=== PATIENT | male | born 1950 | race African-American/Black ===

== ENCOUNTER 2021-06-21 17:10 | Emergency (ER) | payer MEDICARE, MEDICAID | END 2021-06-21 17:57 | disposition left against medical advice (07) | LOC: CSHERS 17:10 | DX: Z53.21 Procedure and treatment not carried out due to patient leaving prior to being seen by health care provider (principal) ==

== ENCOUNTER 2021-06-21 22:16 | Emergency (ER) | payer MEDICARE, MEDICAID ==
[2021-06-21 23:27] LABS: #Basophils 0.1 10x3/uL (0.0-0.2); #Eosinphils 0.3 10x3/uL (0.0-0.5); #Monocytes 0.9 10x3/uL (0.0-1.1); #Neutrophils 3.3 10x3/uL (1.5-8.4); %Eosinophils 4.3 % (0.0-6.0); %Lymphocytes 22.7 % (18.0-47.0); %Monocytes 14.9 % (0.0-10.0); %Neutrophils 56.9 % (40.0-75.0); Hemoglobin 8.8 g/dL (13.5-17.5); Mean Corpuscular Volume 81.9 fl (81.2-95.1); Mean Platelet Volume 10.6 fl (7.4-10.4); Platelet Count 234 10x3/uL (150-450); RBC Distribution Width 14.3 % (11.5-14.5); Red Blood Cell (RBC) Count 3.26 10x6/uL (4.32-5.72); White Blood Cell (WBC) Count 5.8 10x3/uL (3.5-10.5)
[2021-06-21 23:44] LABS: ALT (SGPT) 17 U/L (8-55); AST (SGOT) 23 U/L (5-34); Albumin 3.8 g/dL (3.4-4.8); Alkaline Phosphatase 74 U/L (40-110); Anion Gap 13 mmol/L (10-20); BUN (Urea Nitrogen) 20 mg/dL (8.4-25.7); Bilirubin, Total 0.3 mg/dL (0.2-1.2); CK (CPK) 204 U/L (30-200); Calc. Creatinine Clearance 0 mL/min (70-130); Calcium 8.9 mg/dL (7.8-10.44); Carbon Dioxide 25 mmol/L (23-31); Chloride 106 mmol/L (98-107); Globulin 3.7 g/dL (2.4-3.5); Glucose 113 mg/dL (80-115); Potassium 4.1 mmol/L (3.5-5.1); Protein, Total 7.5 g/dL (5.8-8.1); Sodium 140 mmol/L (136-145)
== END 2021-06-22 00:36 | disposition home or self-care (01) ==
LOC: CSHERS 22:16
DX: R07.89 Other chest pain (principal); I25.10 Atherosclerotic heart disease of native coronary artery without angina pectoris; I10 Essential (primary) hypertension; I25.2 Old myocardial infarction; F17.210 Nicotine dependence, cigarettes, uncomplicated; Z79.899 Other long term (current) drug therapy
CPT/HCPCS: 71045; 82550; 83880; 93005

== ENCOUNTER 2021-06-23 17:59 | Emergency (ER) | payer MEDICARE, MEDICAID ==
[2021-06-23] MEDS ORDERED: Bacitracin 1 PK ONE (19:03)
== END 2021-06-23 19:44 | disposition home or self-care (01) ==
LOC: CSHERS 17:59
DX: S80.812A Abrasion, left lower leg, initial encounter (principal); I10 Essential (primary) hypertension; I25.10 Atherosclerotic heart disease of native coronary artery without angina pectoris; I25.2 Old myocardial infarction; X58.XXXA Exposure to other specified factors, initial encounter; Z87.891 Personal history of nicotine dependence
CPT/HCPCS: 99283

== ENCOUNTER 2021-06-28 15:37 | Outpatient (CLI) | payer MEDICARE, MEDICAID ==
[2021-06-29 01:56] LABS: SARS-CoV-2 PCR by NAA Not Detected (NotDetected)
== END 2021-06-28 15:38 | disposition home or self-care (01) ==
LOC: CSHLAB 15:37
PROVIDERS: ATTEND Internal Medicine Gastroenterology
DX: Z01.812 Encounter for preprocedural laboratory examination (principal); Z20.822 Contact with and (suspected) exposure to COVID-19; K63.5 Polyp of colon
CPT/HCPCS: U0003; U0005

== ENCOUNTER 2021-06-29 10:13 | Day surgery (SDC) | payer MEDICARE, MEDICAID ==
[2021-06-28 14:39] VITALS: BMI 28.7
[2021-06-29] MEDS ORDERED: Lidocaine 1% MPF 2 ML VIAL ONE (11:30)
[2021-06-29] MEDS ORDERED: PROPOFOL 20 ML ONE (12:01)
== END 2021-06-29 13:20 | disposition home or self-care (01) ==
LOC: CSHSDC 10:13
PROVIDERS: ATTEND Internal Medicine Gastroenterology
PROC: 0DJD8ZZ Inspection of Lower Intestinal Tract, Via Natural or Artificial Opening Endoscopic (ICD-10-PCS; principal; 2021-06-29)
DX: Z12.11 Encounter for screening for malignant neoplasm of colon (principal); Z80.0 Family history of malignant neoplasm of digestive organs; Z86.010 Personal history of colon polyps; I25.10 Atherosclerotic heart disease of native coronary artery without angina pectoris; I10 Essential (primary) hypertension; E78.5 Hyperlipidemia, unspecified; G47.30 Sleep apnea, unspecified; F17.210 Nicotine dependence, cigarettes, uncomplicated
CPT/HCPCS: J2704

== ENCOUNTER 2021-07-01 20:11 | Emergency (ER) | payer MEDICARE, MEDICAID | END 2021-07-01 21:36 | disposition left against medical advice (07) | LOC: CSHERS 20:11 | DX: Z53.21 Procedure and treatment not carried out due to patient leaving prior to being seen by health care provider (principal) ==

== ENCOUNTER 2021-07-17 19:35 | Emergency (ER) | payer MEDICARE, MEDICAID ==
[2021-07-17 20:21] LABS: ALT (SGPT) 19 U/L (8-55); AST (SGOT) 25 U/L (5-34); Alkaline Phosphatase 66 U/L (40-110); Anion Gap 13 mmol/L (10-20); BUN (Urea Nitrogen) 28 mg/dL (8.4-25.7); Bilirubin, Total 0.2 mg/dL (0.2-1.2); Calc. Creatinine Clearance 0 mL/min (70-130); Calcium 9.2 mg/dL (7.8-10.44); Carbon Dioxide 26 mmol/L (23-31); Chloride 104 mmol/L (98-107); Globulin 3.8 g/dL (2.4-3.5); Glucose 91 mg/dL (80-115); Potassium 4.3 mmol/L (3.5-5.1); Protein, Total 7.8 g/dL (5.8-8.1); Sodium 139 mmol/L (136-145)
[2021-07-17 20:22] LABS: Hemoglobin 8.7 g/dL (13.5-17.5); Mean Corpuscular HGB CONC 31.9 g/dL (32.0-36.0); Mean Corpuscular Hemoglobin 26.4 pg (27.0-33.0); Mean Corpuscular Volume 82.7 fl (81.2-95.1); Mean Platelet Volume 11.3 fl (7.4-10.4); Platelet Count 226 10x3/uL (150-450); RBC Distribution Width 14.8 % (11.5-14.5); White Blood Cell (WBC) Count 6.9 10x3/uL (3.5-10.5)
[2021-07-17 20:26] LABS: MDiff Complete? YES
[2021-07-17 20:33] LABS: Band 1 % (5-11); Eosinophils 5 % (0-10); Lymphocytes 36 % (21-51); Monocytes 15 % (0-10); Neutrophil 40 % (42-75); Reactive Lymphocytes 2 % (0-10)
[2021-07-17 20:37] LABS: Microcytosis SLIGHT = 6-15 cells (100X) (0-5/hpf); Platelet Morphology Comment Appears Adequate
== END 2021-07-17 20:48 | disposition home or self-care (01) ==
LOC: CSHERS 19:35
DX: R53.83 Other fatigue (principal); D64.9 Anemia, unspecified; R53.1 Weakness; I10 Essential (primary) hypertension; I25.2 Old myocardial infarction; F17.210 Nicotine dependence, cigarettes, uncomplicated
CPT/HCPCS: 71045; 80053; 83880; 84484; 85025; 93005

== ENCOUNTER 2021-08-03 09:51 | Outpatient (CLI) | payer MEDICARE, MEDICAID ==
[2021-08-03 22:08] LABS: SARS-CoV-2 PCR by NAA Not Detected (NotDetected)
== END 2021-08-03 09:52 | disposition home or self-care (01) ==
LOC: CSHLAB 09:51
PROVIDERS: ATTEND Internal Medicine
DX: Z20.822 Contact with and (suspected) exposure to COVID-19 (principal); K63.5 Polyp of colon
CPT/HCPCS: U0003; U0005

== ENCOUNTER → 2021-08-07 | Day surgery (SDC) | payer MEDICARE, MEDICAID ==
[2021-08-03 14:14] VITALS: BMI 27.8
[~2021-08-07] MED LIST: Lidocaine 1% MPF 2 ML VIAL ONE; Lidocaine 2% MPF 10 ML AMP (For Epidural Use) ONE; PROPOFOL 20 ML ONE; PROPOFOL 40 ML ONE
== END ==
LOC: CSHSDC 10:11
PROVIDERS: ATTEND Internal Medicine Gastroenterology
PROC: 0DB98ZX Excision of Duodenum, Via Natural or Artificial Opening Endoscopic, Diagnostic (ICD-10-PCS; principal; 2021-08-07)
PROC: 0DBK8ZX Excision of Ascending Colon, Via Natural or Artificial Opening Endoscopic, Diagnostic (ICD-10-PCS; 2021-08-07)
PROC: 0DBL8ZX Excision of Transverse Colon, Via Natural or Artificial Opening Endoscopic, Diagnostic (ICD-10-PCS; 2021-08-07)
PROC: 0DBH8ZX Excision of Cecum, Via Natural or Artificial Opening Endoscopic, Diagnostic (ICD-10-PCS; 2021-08-07)
DX: K44.9 Diaphragmatic hernia without obstruction or gangrene (principal); D12.2 Benign neoplasm of ascending colon; D12.3 Benign neoplasm of transverse colon; D64.9 Anemia, unspecified; I25.10 Atherosclerotic heart disease of native coronary artery without angina pectoris; Z95.5 Presence of coronary angioplasty implant and graft; E78.5 Hyperlipidemia, unspecified; I10 Essential (primary) hypertension; K21.9 Gastro-esophageal reflux disease without esophagitis; B19.20 Unspecified viral hepatitis C without hepatic coma; G47.30 Sleep apnea, unspecified; Z80.0 Family history of malignant neoplasm of digestive organs; F17.200 Nicotine dependence, unspecified, uncomplicated
CPT/HCPCS: 88305; J2704

== ENCOUNTER 2022-03-26 18:04 | Emergency (ER) | payer OTHER, MEDICAID ==
[2022-03-26 18:46] LABS: #Basophils 0.1 10x3/uL (0.0-0.2); #Eosinphils 0.2 10x3/uL (0.0-0.5); #Neutrophils 4.1 10x3/uL (1.5-8.4); %Basophils 0.9 % (0.0-2.0); %Eosinophils 2.3 % (0.0-6.0); %Lymphocytes 23.3 % (18.0-47.0); %Monocytes 14.6 % (0.0-10.0); %Neutrophils 58.6 % (40.0-75.0); Hemoglobin 9.9 g/dL (13.5-17.5); Mean Corpuscular HGB CONC 33.4 g/dL (32.0-36.0); Mean Corpuscular Hemoglobin 26.6 pg (27.0-33.0); Mean Corpuscular Volume 79.6 fl (81.2-95.1); Mean Platelet Volume 9.8 fl (7.4-10.4); Platelet Count 281 10x3/uL (150-450); RBC Distribution Width 15.3 % (11.5-14.5); Red Blood Cell (RBC) Count 3.72 10x6/uL (4.32-5.72)
[2022-03-26 19:05] LABS: ALT (SGPT) 16 U/L (8-55); AST (SGOT) 19 U/L (5-34); Albumin 3.9 g/dL (3.4-4.8); Alkaline Phosphatase 70 U/L (40-110); Anion Gap 15 mmol/L (10-20); BUN (Urea Nitrogen) 18 mg/dL (8.4-25.7); Bilirubin, Total 0.4 mg/dL (0.2-1.2); CK (CPK) 124 U/L (30-200); Calc. Creatinine Clearance 0 mL/min (70-130); Calcium 9.5 mg/dL (7.8-10.44); Carbon Dioxide 24 mmol/L (23-31); Chloride 103 mmol/L (98-107); Estimated GFR 69; Glucose 96 mg/dL (80-115); Potassium 4.3 mmol/L (3.5-5.1); Protein, Total 7.9 g/dL (5.8-8.1); Sodium 138 mmol/L (136-145)
[2022-03-26] MEDS ORDERED: Ondansetron ODT 4 MG TAB ONE (19:51)
[2022-03-26] MEDS ORDERED: Ondansetron PF 4 MG/2 ML Vial ONE (22:27)
== END 2022-03-26 23:58 | disposition home or self-care (01) ==
LOC: CSHERS 18:04
DX: D64.9 Anemia, unspecified (principal); I10 Essential (primary) hypertension; I25.2 Old myocardial infarction; F17.210 Nicotine dependence, cigarettes, uncomplicated; Z79.899 Other long term (current) drug therapy
CPT/HCPCS: 36415; 71045; 74176; 80053; 82550; 83605; 83690; 83880; 84484; 85025; 93005; 96374; J2405; Q0162

== ENCOUNTER 2022-07-09 16:43 | Outpatient (CLI) | payer MEDICARE, OTHER | END 2022-07-09 16:44 | disposition home or self-care (01) | LOC: CSHRAD 16:43 | PROVIDERS: ATTEND Internal Medicine | DX: M54.50 Low back pain, unspecified (principal); M41.9 Scoliosis, unspecified; M47.814 Spondylosis without myelopathy or radiculopathy, thoracic region; M47.816 Spondylosis without myelopathy or radiculopathy, lumbar region | CPT/HCPCS: 72072; 72100 ==

== ENCOUNTER 2022-11-27 12:19 | Emergency (ER) | payer OTHER, MEDICAID ==
[2022-11-27] MEDS ORDERED: Ondansetron PF 4 MG/2 ML Vial ONE (13:50)
[2022-11-27 14:21] LABS: #Monocytes 0.3 10x3/uL (0.0-1.1); #Neutrophils 4.9 10x3/uL (1.5-8.4); %Basophils 0.7 % (0.0-2.0); %Eosinophils 0.2 % (0.0-6.0); %Monocytes 4.9 % (0.0-10.0); Hemoglobin 12.3 g/dL (13.5-17.5); Mean Corpuscular Hemoglobin 27.6 pg (27.0-33.0); Mean Corpuscular Volume 83.6 fl (81.2-95.1); Mean Platelet Volume 10.6 fl (7.4-10.4); Platelet Count 282 10x3/uL (150-450); RBC Distribution Width 15.3 % (11.5-14.5); Red Blood Cell (RBC) Count 4.46 10x6/uL (4.32-5.72); White Blood Cell (WBC) Count 6.1 10x3/uL (3.5-10.5)
[2022-11-27 14:42] LABS: ALT (SGPT) 15 U/L (8-55); AST (SGOT) 27 U/L (5-34); Acetaminophen Less than 10.0 mcg/mL (10.0-30.0); Albumin 4.1 g/dL (3.4-4.8); Alcohol Less than 10 mg/dL (Less than 10); Alkaline Phosphatase 74 U/L (40-110); Anion Gap 16 mmol/L (10-20); BUN (Urea Nitrogen) 18 mg/dL (8.4-25.7); Bilirubin, Total 0.3 mg/dL (0.2-1.2); Calc. Creatinine Clearance 0 mL/min (70-130); Carbon Dioxide 25 mmol/L (23-31); Chloride 101 mmol/L (98-107); Estimated GFR 71; Globulin 4.6 g/dL (2.4-3.5); Glucose 132 mg/dL (80-115); Potassium 4.6 mmol/L (3.5-5.1); Protein, Total 8.7 g/dL (5.8-8.1); Salicylate Less than 8.0 mg/dL (15.0-30.0); Sodium 137 mmol/L (136-145)
[2022-11-27 15:27] LABS: Amphetamine Not Detected (NotDetected); Barbiturates Screen Not Detected (NotDetected); Benzodiazepine Screen Not Detected (NotDetected); Cocaine Metabolite Screen Not Detected (NotDetected); Methadone Not Detected (NotDetected); Methamphetamine Not Detected (NotDetected); Opiate Screen Not Detected (NotDetected); Oxycodone Screen Not Detected (NotDetected); Phencyclidine (PCP) Not Detected (NotDetected); THC/Cannabinoid Screen Not Detected (NotDetected); Tricyclic Screen Not Detected (NotDetected)
[2022-11-27] MEDS ORDERED: cloNIDine 0.1 MG TAB ONE (15:40)
== END 2022-11-27 15:03 | disposition home or self-care (01) ==
LOC: CSHERS 12:19
DX: F11.23 Opioid dependence with withdrawal (principal); I10 Essential (primary) hypertension; I25.2 Old myocardial infarction; F17.210 Nicotine dependence, cigarettes, uncomplicated; D64.9 Anemia, unspecified; I25.10 Atherosclerotic heart disease of native coronary artery without angina pectoris
CPT/HCPCS: 71045; 80053; 80306; 80307; 83690; 84443; 84484; 85025; 93005; 96361; 96374; J2405

== ENCOUNTER 2022-12-28 05:13 | Emergency (ER) | payer OTHER, MEDICAID | END 2022-12-28 05:55 | disposition home or self-care (01) | LOC: CSHERS 05:13 | DX: L03.113 Cellulitis of right upper limb (principal); I10 Essential (primary) hypertension; I25.10 Atherosclerotic heart disease of native coronary artery without angina pectoris; I25.2 Old myocardial infarction; D64.9 Anemia, unspecified; F17.210 Nicotine dependence, cigarettes, uncomplicated; Z95.5 Presence of coronary angioplasty implant and graft; Z79.82 Long term (current) use of aspirin; Z79.899 Other long term (current) drug therapy | CPT/HCPCS: 99283 ==

== ENCOUNTER 2023-07-07 21:35 | Emergency (ER) | payer MEDICAID, MEDICARE | END 2023-07-08 02:27 | disposition left against medical advice (07) | LOC: CSHERS 21:35 | DX: Z53.21 Procedure and treatment not carried out due to patient leaving prior to being seen by health care provider (principal) ==

== ENCOUNTER 2023-08-23 08:14 | Day surgery (SDC) | payer MEDICARE ==
[2023-08-22 10:55] VITALS: BMI 27.8
[2023-08-23] MEDS ORDERED: PROPOFOL 20 ML ONE (11:01)
[2023-08-23] MEDS ORDERED: Lidocaine 1% PF 5 ML VIAL ONE (11:01)
== END 2023-08-23 12:20 | disposition home or self-care (01) ==
LOC: CSHSDC 08:14
PROVIDERS: ATTEND Internal Medicine Gastroenterology
PROC: 0DJ08ZZ Inspection of Upper Intestinal Tract, Via Natural or Artificial Opening Endoscopic (ICD-10-PCS; principal; 2023-08-23)
PROC: 0DJD8ZZ Inspection of Lower Intestinal Tract, Via Natural or Artificial Opening Endoscopic (ICD-10-PCS; 2023-08-23)
DX: Z12.11 Encounter for screening for malignant neoplasm of colon (principal); K44.9 Diaphragmatic hernia without obstruction or gangrene; K29.60 Other gastritis without bleeding; D64.9 Anemia, unspecified; K64.9 Unspecified hemorrhoids; K21.9 Gastro-esophageal reflux disease without esophagitis; I25.10 Atherosclerotic heart disease of native coronary artery without angina pectoris; I10 Essential (primary) hypertension; E78.5 Hyperlipidemia, unspecified; Z86.010 Personal history of colon polyps
CPT/HCPCS: 43235; G0121; J2704

== ENCOUNTER 2025-06-11 02:54 | Emergency (ER) | payer MEDICARE, SELFPAY | END 2025-06-11 03:37 | disposition home or self-care (01) | LOC: CSHERS 02:54 | DX: Z71.1 Person with feared health complaint in whom no diagnosis is made (principal); I10 Essential (primary) hypertension; E78.5 Hyperlipidemia, unspecified; Z79.02 Long term (current) use of antithrombotics/antiplatelets; Z79.899 Other long term (current) drug therapy | CPT/HCPCS: 99282 ==